=== PATIENT | male | born 1960 | race Caucasian/White ===

== ENCOUNTER 2017-04-05 19:54 | Emergency (ER) | payer OTHER ==
[2017-04-05 22:57] LABS: Hematocrit 42 % (42-52); Hemoglobin 13.9 g/dl (14.0-18.0); Mean Corpuscular HGB Conc 33 g/dl (31-36); Mean Corpuscular Hemoglobin 30 pg (27-31); Mean Corpuscular Volume 90 fL (80-94); Red Blood Count 4.65 10^6/ul (4.0-5.4); Red Cell Distribution Width 14 % (10.5-15); White Blood Count 9.7 10^3/ul (3.5-10.8)
[2017-04-05 23:01] LABS: Add Diff/Slide Review? Slide Review Added; Comments Flag Yes
[2017-04-05 23:08] LABS: Albumin 4.2 g/dL (3.2-5.2); BUN/Creatinine Ratio 11.2 (8-20); Calcium 9.5 mg/dL (8.6-10.3); EGFR African American 91.3 (>60); Potassium 3.7 mmol/L (3.5-5.0); Total Bilirubin 0.9 mg/dL (0.2-1.0); Total Protein 7.2 g/dL (6.4-8.9)
[2017-04-05] MEDS ORDERED: NS 0.9% 1000 ML* 1,000 ML IV ONE (23:30)
[2017-04-05] MEDS ORDERED: Ketorolac INJ* 30 MG/ML 1 ML VIAL IV PUSH ONE (23:30)
[2017-04-05] MEDS ORDERED: Iohexol 300* (CONTRAST) 10 ML SDV IV ONE (23:57)
--- NOTE | 2017-04-06 00:21 | ED ---
Abdominal Pain/Male - HPI Summary HPI Summary: 57M presents with LLQ pain for 5 days. He states the pain radiates across his lower abdomen. The pain is cramp like. He admits to more frequent stools than normal. He states that his stools tend to be looser but no blood or mucus in his stools. no new foods or any one else sick. no nausea or vomiting. no dysuria, hematuria, flank pain, urgency and frequency. took advil for pain. He has never had these symptoms before. He had appendix removed when younger. - History of Current Complaint Chief Complaint: EDAbdPain Stated Complaint: ABD PAIN Time Seen by Provider: 04/05/17 23:21 Pain Intensity: 6 - Allergies/Home Medications Allergies/Adverse Reactions: Allergies Allergy/AdvReac Type Severity Reaction Status Date / Time Morphine Allergy Severe Nausea And Verified 04/05/17 20:14 Vomiting PMH/Surg Hx/FS Hx/Imm Hx Endocrine/Hematology History: Denies: Hx Diabetes, Hx Thyroid Disease Cardiovascular History: Reports: Hx Hypertension Respiratory History: Denies: Hx Asthma, Hx Chronic Obstructive Pulmonary Disease (COPD) GI History: Denies: Hx Ulcer History: Denies: Hx Dialysis, Hx Renal Disease - Surgical History Surgery Procedure, Year, and Place: APPENDECTOMY. HEMRROIDECTOMY. LEFT KNEE ARTHOSCOPY Infectious Disease History: No Infectious Disease History: Denies: Hx Clostridium Difficile, Hx Hepatitis, Hx Human Immunodeficiency Virus (HIV), Hx of Known/Suspected MRSA, Hx Shingles, Hx Tuberculosis, History Other Infectious Disease, Traveled Outside the [place] in Last 30 Days - Family History Known Family History: Positive: Hypertension - Social History Alcohol Use: Daily Alcohol Amount: 6-8 beers Substance Use Type: Reports: None Smoking Status (MU): Never Smoked Tobacco Type: Cigarettes Length of Time of Smoking/Using Tobacco: 10 years Have You Smoked in the Last Year: No Review of Systems Positive: Fever Negative: Chest Pain Negative: Shortness Of Breath Positive: Abdominal Pain, Diarrhea. Negative: Vomiting, Nausea All Other Systems Reviewed And Are Negative: Yes Physical Exam Triage Information Reviewed: Yes Vital Signs On Initial Exam: Initial Vitals Temp Pulse Resp BP Pulse Ox 98.7 F 75 16 149/73 98 04/05/17 20:05 04/05/17 20:05 04/05/17 20:05 04/05/17 20:05 04/05/17 20:05 Vital Signs Reviewed: Yes Appearance: Positive: Well-Appearing Skin: Positive: Warm, Dry Head/Face: Positive: Normal Head/Face Inspection Eyes: Positive: Normal, EOMI, KASIE, Conjunctiva Clear ENT: Positive: Normal ENT inspection, Pharynx normal, TMs normal Respiratory/Lung Sounds: Positive: Clear to Auscultation, Breath Sounds Present Cardiovascular: Positive: Normal, RRR Abdomen Description: Positive: Soft, Other: - tenderness in RLQ and LLQ, no rebound Bowel Sounds: Positive: Present - [place] Coma Scale Coma Scale Total: 15 Diagnostics - Vital Signs Vital Signs Temp Pulse Resp BP Pulse Ox 04/05/17 23:23 68 95 04/05/17 23:22 129/60 04/05/17 21:55 98.1 F 77 16 149/66 97 04/05/17 20:05 98.7 F 75 16 149/73 98 - Laboratory Lab Results: Lab Results 04/05/17 04/05/17 04/05/17 Range/Units 22:45 22:45 22:45 WBC 9.7 (3.5-10.8) 10^3/ul RBC 4.65 (4.0-5.4) 10^6/ul Hgb 13.9 L (14.0-18.0) g/dl Hct 42 (42-52) % MCV 90 (80-94) fL MCH 30 (27-31) pg MCHC 33 (31-36) g/dl RDW 14 (10.5-15) % Plt Count 170 (150-450) 10^3/ul Neut % (Auto) 71.1 (38-83) % Lymph % (Auto) 17.3 L (25-47) % [place] % (Auto) 9.4 H (1-9) % Eos % (Auto) 1.3 (0-6) % Baso % (Auto) 0.9 (0-2) % Absolute Neuts (auto) 6.9 (1.5-7.7) 10^3/ul Absolute Lymphs (auto) 1.7 (1.0-4.8) 10^3/ul Absolute Monos (auto) 0.9 H (0-0.8) 10^3/ul Absolute Eos (auto) 0.1 (0-0.6) 10^3/ul Absolute Basos (auto) 0.1 (0-0.2) 10^3/ul Absolute Nucleated RBC 0.02 10^3/ul Nucleated RBC % 0.2 Sodium 133 (133-145) mmol/L Potassium 3.7 (3.5-5.0) mmol/L Chloride 101 (101-111) mmol/L Carbon Dioxide 28 (22-32) mmol/L Anion Gap 4 (2-11) mmol/L BUN 12 (6-24) mg/dL Creatinine 1.07 (0.67-1.17) mg/dL Est GFR ( Amer) 91.3 (>60) Est GFR (Non-Af Amer) 71.0 (>60) BUN/Creatinine Ratio 11.2 (8-20) Glucose 125 H (70-100) mg/dL Lactic Acid 1.0 (0.5-2.0) mmol/L Calcium 9.5 (8.6-10.3) mg/dL Total Bilirubin 0.90 (0.2-1.0) mg/dL AST 16 (13-39) U/L ALT 20 (7-52) U/L Alkaline Phosphatase 50 (34-104) U/L C-React Prot High Sens 63.92 mg/L Total Protein 7.2 (6.4-8.9) g/dL Albumin 4.2 (3.2-5.2) g/dL Globulin 3.0 (2-4) g/dL Albumin/Globulin Ratio 1.4 (1-3) Lipase 12 (11.0-82.0) U/L Result Diagrams: 04/05/17 22:45 04/05/17 22:45 Lab Statement: Any lab studies that have been ordered have been reviewed, and results considered in the medical decision making process. Re-Evaluation - Re-Evaluation First Eval Re-Evaluation Time: 02:16 Change: Improved Comment: feeling better after toradol Abdominal Pain Fem Course/Dx - Course Course Of Treatment: 57M presents with LLQ pain for 5 days. He states the pain radiates across his lower abdomen. The pain is cramp like. He admits to more frequent stools than normal. He states that his stools tend to be looser but no blood or mucus in his stools. no new foods or any one else sick. no nausea or vomiting. no dysuria, hematuria, flank pain, urgency and frequency. took advil for pain. He has never had these symptoms before. He had appendix removed when younger. on exam has tenderness in LLQ greatest and RLQ. labs normal wbc 9.7 and crp is 63. patient signed out to dr valdez pending CT. - Diagnoses Differential Diagnosis/HQI/PQRI: Bowel Obstruction, Constipation, Diverticulitis Provider Diagnoses: Abdominal pain Discharge - Discharge Plan Condition: Stable Disposition: OTHER Discharge Disposition Comment: signed out to dr valdez pending CT Referrals: Bhargavi Krueger MD [Primary Care Provider] -
--- NOTE | 2017-04-06 03:25 | ED ---
Re-Evaluation - Re-Evaluation First Eval Re-Evaluation Time: 02:16 Change: Improved Comment: feeling better after toradol Course/Dx - Course Course Of Treatment: RX CIPRO/FLAGYL. F/U PMD; RETURN IF WORSE - Diagnoses Provider Diagnoses: Abdominal pain, Diverticulitis
[2017-04-06] MEDS ORDERED: metroNIDAZOLE TAB* 250 MG PO ONE (03:26)
[2017-04-06] MEDS ORDERED: Ciprofloxacin TAB* 500 MG PO ONE (03:26)
[2017-04-06 04:11] VITALS: BP 121/64
--- NOTE | 2017-04-06 08:06 | RAD ---
CLINICAL HISTORY: Left lower quadrant pain. Relevant surgical history includes appendectomy. COMPARISON: Similar examination dated March 17, 2008 TECHNIQUE: Contrast enhanced CT examination of the abdomen and pelvis from the lung bases through the initial tuberosities. The patient received 133 mL Omnipaque 300 intravenously prior to imaging.The patient received oral contrast as well prior to imaging. FINDINGS: VISUALIZED LUNG BASES: There are mild hypoventilatory changes the bilateral lung bases. Otherwise the visualized lung bases are grossly clear. There is no pleural effusion. ABDOMEN AND PELVIS: The liver, spleen, pancreas and adrenal glands are grossly normal in appearance. The gallbladder is normal. The kidneys are normal in appearance without focal mass, calcification or signs of hydronephrosis. The oral contrast has progressed as far as the rectum. The small and large bowel are not distended. Consistent with the patient's surgical history, the appendix is not visualized. At the superiormost portion of the matthew ascending colon (axial image 29 and coronal image 49) there is a short segment of bowel exhibiting mild circumferential wall thickening and infiltration of the mesenteric fat. This is in the presence of at least one diverticula. There is no gross retroperitoneal or mesenteric lymphadenopathy. The pelvic viscera is normal in appearance. There are small fat-containing inguinal hernias bilaterally. The abdominal aorta and iliac arteries are normal in course and diameter. Degenerative changes include multilevel loss of intervertebral disc height involving the lower thoracic and lumbar spine.There are no sinister bone lesions. IMPRESSION: 1. Short segment of bowel wall thickening and pericolonic inflammatory change at the superiormost ascending colon diverticulitis, likely in the presence of at least one diverticulum. A less likely consideration, though not eliminated on CT imaging alone, would be neoplasm. Particularly if the patient has never undergone screening colonoscopy, direct visualization after a resolution of the acute symptoms is advised. 2. Additional chronic, degenerative and postsurgical changes described in the body the report.
== END 2017-04-06 04:12 | disposition home or self-care (01) ==
LOC: ED 19:54
DX: K57.92 Diverticulitis of intestine, part unspecified, without perforation or abscess without bleeding (principal); R10.9 Unspecified abdominal pain
CPT/HCPCS: 36415; 74177; 80053; 83605; 83690; 85025; 86141; 96374; 99283; A9270-GY; J1885; Q9967

== ENCOUNTER 2017-07-31 11:07 | Emergency (ER) | payer OTHER ==
[2017-07-31 12:20] VITALS: BP 124/72
--- NOTE | 2017-07-31 13:13 | UC ---
Respiratory Complaint HPI - HPI Summary HPI Summary: Patient presents with complaints of fever, sweats, and chest congestion, cough. He states his symptoms have been for about 2 weeks and he has been tkaing OTC cold medications with no real significant improvement in his symptoms. He denies chest or abdominal pain, nausea, vomiting, diarrhea. He reports mild shortness of breath with exertion but denies chest pain, arm, neck , shoulder or jaw pain. - History of Current Complaint Chief Complaint: UCRespiratory Stated Complaint: SINUS AND CHEST CONGESTION Time Seen by Provider: 07/31/17 12:28 Hx Obtained From: Patient Onset/Duration: Gradual Onset, Lasting Weeks Timing: Intermittent Episodes Severity Initially: Mild Severity Currently: Moderate Pain Intensity: 6 Aggravating Factors: Deep Breaths Alleviating Factors: Spontaneous Resolution Associated Signs And Symptoms: Positive: URI, Nasal Congestion, Sinus Discomfort - Risk Factors Pulmonary Embolism Risk Factors: Negative Cardiac Risk Factors: Negative Pseudomonas Risk Factors: Negative Tuberculosis Risk Factors: Negative - Allergies/Home Medications Allergies/Adverse Reactions: Allergies Allergy/AdvReac Type Severity Reaction Status Date / Time MS Morphine [Morphine] Allergy Severe Nausea And Verified 07/31/17 12:20 Vomiting PMH/Surg Hx/FS Hx/Imm Hx Previously Healthy: Yes - Surgical History Surgical History: Yes Surgery Procedure, Year, and Place: APPENDECTOMY. HEMRROIDECTOMY. LEFT KNEE ARTHOSCOPY - Family History Known Family History: Positive: Hypertension - Social History Occupation: Employed Full-time Lives: With Family Alcohol Use: Daily Alcohol Amount: 6-8 beers Substance Use Type: None Smoking Status (MU): Former Smoker Type: Cigarettes Length of Time of Smoking/Using Tobacco: 10 years Have You Smoked in the Last Year: No When Did the Patient Quit Smoking/Using Tobacco: 24 years ago Review of Systems Constitutional: Fever, Fatigue Skin: Negative Eyes: Negative ENT: Negative Respiratory: Shortness Of Breath, Cough Cardiovascular: Negative Gastrointestinal: Negative Genitourinary: Negative Motor: Negative Neurovascular: Negative Musculoskeletal: Negative Neurological: Negative Psychological: Negative Is Patient Immunocompromised?: No All Other Systems Reviewed And Are Negative: Yes Physical Exam Triage Information Reviewed: Yes Appearance: Well-Appearing Vital Signs: Initial Vital Signs Temp 97.6 F 07/31/17 12:15 Pulse 79 07/31/17 12:15 Resp 16 07/31/17 12:15 BP 124/72 07/31/17 12:15 Pulse Ox 99 07/31/17 12:15 Vital Signs Reviewed: Yes Eye Exam: Normal ENT Exam: Normal ENT: Positive: Pharynx normal, TMs normal Neck exam: Normal Neck: Positive: 1 Respiratory Exam: Normal Respiratory: Positive: Rhonchi Cardiovascular Exam: Normal Cardiovascular: Positive: RRR, No Murmur, Pulses Normal Abdominal Exam: Normal Musculoskeletal Exam: Normal Neurological Exam: Normal Psychological Exam: Normal Skin Exam: Normal UC Diagnostic Evaluation - Laboratory O2 Sat by Pulse Oximetry: 99 Respiratory Course/Dx - Course Course Of Treatment: Patient presents with bronchitis, and was treated with Augmentin, Prednisone, and albuterol. He had stable VS, nontoxic appearance, and discharged home in stable condition. - Differential Dx/Diagnosis Differential Diagnosis/HQI/PQRI: Bronchitis Provider Diagnoses: bronchitis Discharge - Discharge Plan Condition: Stable Disposition: HOME Prescriptions: Albuterol HFA INHALER* [Ventolin HFA Inhaler*] 1 puff INH Q4H PRN #1 mdi PRN Reason: Cough Amoxicillin/Clavulanate TAB* [Augmentin TAB 500 mg*] 500 mg PO TID #30 tab predniSONE TAB* [Deltasone TAB*] 20 mg PO BID #10 tab Patient Education Materials: Acute Bronchitis (ED) Referrals: Bhargavi Krueger MD [Primary Care Provider] -
== END 2017-07-31 13:13 | disposition home or self-care (01) ==
LOC: UCEAST 11:07
DX: J40 Bronchitis, not specified as acute or chronic (principal); Z88.5 Allergy status to narcotic agent; Z87.891 Personal history of nicotine dependence
CPT/HCPCS: 87502; 99212; G0463

== ENCOUNTER 2017-11-25 18:27 | Emergency (ER) | payer OTHER ==
[2017-11-25 18:41] VITALS: BP 145/91
--- NOTE | 2017-11-25 19:00 | UC ---
Heena Kenny Elizabeth, scribed for Lisandro Kelley MD on 11/25/17 at 1842 . Skin Complaint HPI - HPI Summary HPI Summary: This patient is a 57 year old M presenting to [facility] with a chief complaint of a tick bite on his left inner thigh since 2 days ago. The patient notes that the ticks head remains embedded in his skin but he was able to remove the rest of the ticks body this morning. The patient rates the pain 0/10 in severity. Symptoms aggravated by nothing. Symptoms alleviated by nothing. The patient notes that he took 200mg doxycycline today for prophylaxis. The patient was found to have increased BP in UC. - History of Current Complaint Time Seen by Provider: 11/25/17 18:28 Stated Complaint: TICK Hx Obtained From: Patient Onset/Duration: Sudden Onset, Lasting Days - 2 days, Still Present Timing: Constant Onset Severity: Mild Current Severity: Mild Pain Intensity: 0 Pain Scale Used: 0-10 Numeric Location: Other - left inner thigh Aggravating Factor(s): Nothing Alleviating Factor(s): Nothing Related History: Insect Bite/Sting - tick bite - Allergy/Home Medications Allergies/Adverse Reactions: Allergies Allergy/AdvReac Type Severity Reaction Status Date / Time morphine Allergy Nausea And Verified 11/25/17 18:28 Vomiting Review of Systems Constitutional: Negative - NEGATIVE FEVER Skin: Other - Tick head embedded in left inner thigh ENT: Negative - NEGATIVE EPISTAXIS Gastrointestinal: Negative - NEGATIVE VOMITING All Other Systems Reviewed And Are Negative: Yes PMH/Surg Hx/FS Hx/Imm Hx Previously Healthy: Yes - Surgical History Surgical History: Yes Surgery Procedure, Year, and Place: APPENDECTOMY. HEMRROIDECTOMY. LEFT KNEE ARTHOSCOPY - Family History Known Family History: Positive: Hypertension - Social History Alcohol Use: Daily Alcohol Amount: 6-8 beers Substance Use Type: None Smoking Status (MU): Former Smoker Type: Cigarettes Length of Time of Smoking/Using Tobacco: 10 years Have You Smoked in the Last Year: No When Did the Patient Quit Smoking/Using Tobacco: 24 years ago Physical Exam - Summary Physical Exam Summary: VITAL SIGNS: Reviewed. GENERAL: Patient is a well-developed and nourished MALE who is lying comfortable in the stretcher. Patient is not in any acute respiratory distress. HEAD AND FACE: Normocephalic EYES: PERRLA, EOMI x 2. EARS: Hearing grossly intact. MOUTH: Oropharynx within normal limits. NECK: Supple, trachea is midline, no adenopathy, no JVD, no carotid bruit. CHEST: Symmetric, no tenderness at palpation LUNGS: Clear to auscultation bilaterally. No wheezing or crackles. CVS: Regular rate and rhythm, S1 and S2 present, no murmurs or gallops appreciated. ABDOMEN: Soft, non-tender. Bowel sounds are normal. No abdominal abnormal pulsations. EXTREMITIES: Full ROM in all major joints, no edema, no cyanosis or clubbing. Head of a tick embedded in left inner thigh. NEURO: Alert and oriented x 3. No acute neurological deficits. Speech is normal and follows commands. SKIN: Dry and warm. Head of a tick embedded in left inner thigh. Triage Information Reviewed: Yes Vital Signs: Initial Vital Signs Temp 98.9 F 11/25/17 18:37 Pulse 82 11/25/17 18:37 Resp 18 11/25/17 18:37 BP 145/91 11/25/17 18:37 Pulse Ox 98 11/25/17 18:37 Vital Signs Reviewed: Yes Course/Dx - Course Course Of Treatment: This patient is a 57-year-old male who presents to the urgent care for tick removal. Tick was successfully removed. Patient already took the doxycycline 200 mg as a prophylaxis. I discussed all the findings and test results with the patient and Patient was instructed to return to the or go to the ED if develops any fever, increase sore throat unable to swallow, drooling, unable to open their mouth, or any other symptoms. The patient understands and agrees. Plan of care was discussed with the patient and understands and agrees. All questions were answered at patient satisfaction. There were no further complaints or concerns. Patient is A + O X 3. hemodynamically stable. - Diagnoses Provider Diagnoses: tick bite Discharge - Sign-Out/Discharge Documenting (check all that apply): Discharge/Admit/Transfer - Discharge Plan Condition: Stable Disposition: HOME Patient Education Materials: Tick Bite (ED) Referrals: Bhargavi Krueger MD [Primary Care Provider] - Additional Instructions: Follow up with primary care physician within 1 week for high blood pressure noted today. Return to with any new or worsening symptoms - Billing Disposition and Condition Condition: STABLE Disposition: HOME The documentation as recorded by the scribe, [place],Jessie accurately reflects the service I personally performed and the decisions made by me, Lisandro Kelley MD.
== END 2017-11-25 18:55 | disposition home or self-care (01) ==
LOC: UCEAST 18:27
DX: S70.362A Insect bite (nonvenomous), left thigh, initial encounter (principal); W57.XXXA Bitten or stung by nonvenomous insect and other nonvenomous arthropods, initial encounter; Y93.9 Activity, unspecified; Y92.9 Unspecified place or not applicable; Z88.5 Allergy status to narcotic agent; Z82.49 Family history of ischemic heart disease and other diseases of the circulatory system; Z87.891 Personal history of nicotine dependence
CPT/HCPCS: 99211; G0463

== ENCOUNTER 2018-02-05 14:21 | Emergency (ER) | payer OTHER ==
[2018-02-05 14:59] VITALS: BP 128/78
--- NOTE | 2018-02-05 16:04 | UC ---
Lower Extremity/Ankle HPI - HPI Summary HPI Summary: patient states his shins have been sensitive since he hit them in July. He hit his left sexton again a week ago against the metal stand of a picnic table. Patient states the pain was very intense and has noticed increased redness and swelling on his leg ever since. Denies fever or chills but states he feels his leg 's skin is very tense from the underlying swelling - History of Current Complaint Chief Complaint: UCSkin Stated Complaint: L LEG INJURY Time Seen by Provider: 02/05/18 15:31 Hx Obtained From: Patient Onset/Duration: Sudden Onset, Lasting Days Severity Initially: Moderate Severity Currently: Severe Pain Intensity: 7 Aggravating Factor(s): Standing, Ambulation Able to Bear Weight: Yes - Risk Factors Gout Risk Factors: Age Over 40, Male, Hypertension DVT Risk Factors: Negative Septic Arthritis Risk Factor: Negative - Allergies/Home Medications Allergies/Adverse Reactions: Allergies Allergy/AdvReac Type Severity Reaction Status Date / Time morphine Allergy Nausea And Verified 02/05/18 14:59 Vomiting Home Medications: Home Medications Esomeprazole Magnesium [Nexium 24Hr] 20 mg PO DAILY WITH MEAL 02/05/18 [History Confirmed 02/05/18] PMH/Surg Hx/FS Hx/Imm Hx Previously Healthy: Yes Cardiovascular History: Hypertension GI/ History: Gastroesophageal Reflux - Surgical History Surgical History: Yes Surgery Procedure, Year, and Place: APPENDECTOMY. HEMRROIDECTOMY. LEFT KNEE ARTHOSCOPY - Family History Known Family History: Positive: Hypertension - Social History Alcohol Use: Daily Alcohol Amount: 6-8 beers Substance Use Type: None Smoking Status (MU): Former Smoker Type: Cigarettes Length of Time of Smoking/Using Tobacco: 10 years Have You Smoked in the Last Year: No When Did the Patient Quit Smoking/Using Tobacco: 24 years ago Review of Systems Constitutional: Negative Skin: Rash, Bruising Musculoskeletal: Edema All Other Systems Reviewed And Are Negative: Yes Physical Exam Triage Information Reviewed: Yes Appearance: Well-Appearing, No Pain Distress, Obese Vital Signs: Initial Vital Signs Temp 98.1 F 02/05/18 14:54 Pulse 81 02/05/18 14:54 Resp 20 02/05/18 14:54 BP 128/78 02/05/18 14:54 Pulse Ox 98 02/05/18 14:54 Vital Signs Reviewed: Yes Eyes: Positive: Conjunctiva Clear ENT: Positive: Hearing grossly normal, Pharynx normal Neck: Positive: Supple, Nontender, No Lymphadenopathy Cardiovascular: Positive: RRR, No Murmur, Pulses Normal, Brisk Capillary Refill Musculoskeletal: Positive: Strength Intact, Edema @ - lower extremities b/l 1+ pitting edema with granulation tissue on left sexton and surrounding thinning of the skin and circumferential erythema distal third of left leg. Pulses present, capillary refill brisk Neurological: Positive: Alert, Muscle Tone Normal Lower Extremity Course/Dx - Course Course Of Treatment: cellulitis on left leg to start antibiotics as prescribed, control edema by elevation of legs and compression with DALTON bandage, which was applied on right leg. Take ibuprofen as needed - Differential Dx/Diagnosis Provider Diagnoses: Left Leg cellulitis Discharge - Sign-Out/Discharge Documenting (check all that apply): Patient Departure - Discharge Plan Condition: Good Disposition: HOME Prescriptions: Amoxicillin/Clavulanate TAB* [Augmentin TAB 875*] 875 mg PO BID 7 Days #14 tab Patient Education Materials: Cellulitis (ED), Amoxicillin/Clavulanate Potassium (By mouth) Referrals: Bhargavi Krueger MD [Primary Care Provider] - - Billing Disposition and Condition Condition: GOOD Disposition: Home
== END 2018-02-05 15:55 | disposition home or self-care (01) ==
LOC: UCEAST 14:21
DX: L03.116 Cellulitis of left lower limb (principal); K21.9 Gastro-esophageal reflux disease without esophagitis; Z88.5 Allergy status to narcotic agent; Z82.49 Family history of ischemic heart disease and other diseases of the circulatory system; Z87.891 Personal history of nicotine dependence
CPT/HCPCS: 99212; G0463

== ENCOUNTER 2018-02-09 07:38 | Emergency (ER) | payer OTHER ==
--- NOTE | 2018-02-09 07:49 | ED ---
Lower Extremity - HPI Summary HPI Summary: 58 y/o male presents to [facility] c/o worsening swelling, redness and pain at the L sexton starting 10 days ago s/p injury. Pain aggravated to touch. Pt fell in July 2017 and "smashed both shins". Pt then reinjured his L sexton 10 days ago , onset of these current symptoms. Pt slipped and hit his L sexton on a metal pipe. Pain initially rated 8-9/10. Pt seen at Urgent Care four days ago, given Augmentin for cellulitis. Denies fevers. FHx mother had blood clots. - History of Current Complaint Stated Complaint: SKIN COMPLAINT Hx Obtained From: Patient Mechanism Of Injury: Direct Blow Onset/Duration: Days Timing: Constant Location: Is Discrete @ - L sexton Associated Signs And Symptoms: Positive: Swelling, Redness Aggravating Factor(s): Other - touch Alleviating Factor(s): Nothing - Allergies/Home Medications Allergies/Adverse Reactions: Allergies Allergy/AdvReac Type Severity Reaction Status Date / Time morphine Allergy Nausea And Verified 02/09/18 07:44 Vomiting PMH/Surg Hx/FS Hx/Imm Hx Previously Healthy: No Endocrine/Hematology History: Denies: Hx Diabetes, Hx Thyroid Disease Cardiovascular History: Reports: Hx Hypertension Respiratory History: Denies: Hx Asthma, Hx Chronic Obstructive Pulmonary Disease (COPD) GI History: Denies: Hx Ulcer History: Denies: Hx Dialysis, Hx Renal Disease - Surgical History Surgery Procedure, Year, and Place: APPENDECTOMY. HEMRROIDECTOMY. LEFT KNEE ARTHOSCOPY Infectious Disease History: Denies: Hx Clostridium Difficile, Hx Hepatitis, Hx Human Immunodeficiency Virus (HIV), Hx of Known/Suspected MRSA, Hx Shingles, Hx Tuberculosis, History Other Infectious Disease, Traveled Outside the [place] in Last 30 Days - Family History Known Family History: Positive: Hypertension, Diabetes - aunt, Blood Disorder - mother - blood clots Negative: Cardiac Disease - Social History Alcohol Use: Daily Alcohol Amount: 6-8 beers Hx Substance Use: No Substance Use Type: Reports: None Hx Tobacco Use: Yes Smoking Status (MU): Former Smoker Type: Cigarettes Length of Time of Smoking/Using Tobacco: 10 years Have You Smoked in the Last Year: No Review of Systems Constitutional: Negative Eyes: Negative ENT: Negative Cardiovascular: Negative Respiratory: Negative Gastrointestinal: Negative Genitourinary: Negative Musculoskeletal: Negative Positive: Other - swelling, redness, pain at LLE Neurological: Negative Psychological: Normal All Other Systems Reviewed And Are Negative: Yes Physical Exam Triage Information Reviewed: Yes Vital Signs Reviewed: Yes Appearance: Positive: Well-Appearing, No Pain Distress Skin: Positive: Warm, Skin Color Reflects Adequate Perfusion, Dry Head/Face: Positive: Normal Head/Face Inspection Eyes: Positive: EOMI, KASIE ENT: Positive: Normal ENT inspection Neck: Positive: Supple, Nontender Respiratory/Lung Sounds: Positive: Clear to Auscultation, Breath Sounds Present Cardiovascular: Positive: RRR Abdomen Description: Positive: Nontender, Soft Bowel Sounds: Positive: Present Musculoskeletal: Positive: Strength/ROM Intact, Other - LLE - There is a 15x10 cm area of erythema at the lateral aspect of the L sexton. There is swelling in the lateral aspect of the sexton that is firm to touch. There is no popliteal or upper calf tenderness to palpation. Neurological: Positive: Sensory/Motor Intact, Alert, Oriented to Person Place, Time Psychiatric: Positive: Affect/Mood Appropriate Discharge - Discharge Plan Referrals: Bhargavi Krueger MD [Primary Care Provider] -
[2018-02-09 07:57] VITALS: BP 135/66
--- NOTE | 2018-02-09 08:31 | RAD ---
Indication: Leg swelling status post leg injury. 2 views of left lower leg demonstrates no fracture. No other bone or joint abnormality is noted. IMPRESSION: No fracture of the left lower leg is noted.
--- NOTE | 2018-02-09 08:32 | UC ---
Lower Extremity/Ankle HPI - HPI Summary HPI Summary: 58 y/o male presents to [facility] c/o worsening swelling, redness and pain at the L sexton starting 10 days ago s/p injury. Pain aggravated to touch. Pt fell in July 2017 and "smashed both shins". Pt then reinjured his L sexton 10 days ago , onset of these current symptoms. Pt slipped and hit his L sexton on a metal pipe. Pain initially rated 8-9/10. Pt seen at Urgent Care four days ago, given Augmentin for cellulitis. Denies fevers. FHx mother had blood clots. This is scribe Ed Monica documenting for attending Dr. Jase Blanca. I, Dr. Bullard, personally performed the services described in this documentation as scribed in my presence and it is both accurate and complete. - History of Current Complaint Chief Complaint: UCSkin Stated Complaint: SKIN COMPLAINT Time Seen by Provider: 02/09/18 07:52 Hx Obtained From: Patient Onset/Duration: Lasting Days Pain Intensity: 3 Pain Scale Used: 0-10 Numeric Aggravating Factor(s): Other - touch Alleviating Factor(s): Nothing - Allergies/Home Medications Allergies/Adverse Reactions: Allergies Allergy/AdvReac Type Severity Reaction Status Date / Time morphine Allergy Nausea And Verified 02/09/18 07:44 Vomiting Home Medications: Home Medications Ibuprofen [Goodsense Ibuprofen] 600 mg PO Q8HR PRN 02/09/18 [History Confirmed 02/09/18] PMH/Surg Hx/FS Hx/Imm Hx Previously Healthy: No Endocrine History: Other Other Endocrine History: Negative: DM, Thyroid disease Respiratory History: Other Other Respiratory History: Negative: COPD and asthma - Surgical History Surgical History: Yes Surgery Procedure, Year, and Place: APPENDECTOMY. HEMRROIDECTOMY. LEFT KNEE ARTHOSCOPY - Family History Known Family History: Positive: Hypertension, Diabetes - aunt, Blood Disorder - mother - blood clots Negative: Cardiac Disease - Social History Alcohol Use: Daily Alcohol Amount: 6-8 beers Substance Use Type: None Smoking Status (MU): Former Smoker Type: Cigarettes Length of Time of Smoking/Using Tobacco: 10 years Have You Smoked in the Last Year: No When Did the Patient Quit Smoking/Using Tobacco: 24 years ago Review of Systems Constitutional: Negative Skin: Other - redness, swelling, pain @ LLE Eyes: Negative ENT: Negative Respiratory: Negative Cardiovascular: Negative Gastrointestinal: Negative Genitourinary: Negative Motor: Negative Neurovascular: Negative Musculoskeletal: Negative Neurological: Negative Psychological: Negative All Other Systems Reviewed And Are Negative: Yes Physical Exam Triage Information Reviewed: Yes Appearance: No Pain Distress, Ill-Appearing - mildly Vital Signs: Initial Vital Signs Temp 99.0 F 02/09/18 07:44 Pulse 66 02/09/18 07:44 Resp 18 02/09/18 07:44 BP 135/66 02/09/18 07:44 Pulse Ox 97 02/09/18 07:44 Vital Signs Reviewed: Yes ENT: Positive: Normal ENT inspection Neck: Positive: Supple, Nontender Respiratory: Positive: Lungs clear, Normal breath sounds Cardiovascular: Positive: RRR Abdomen Description: Positive: Nontender, Soft Bowel Sounds: Positive: Present Musculoskeletal: Positive: Strength Intact, ROM Intact Neurological: Positive: Alert Psychological: Positive: Age Appropriate Behavior Skin: Positive: Other - LLE - There is a 15x10 cm area of erythema at the lateral aspect of the L sexton. There is swelling in the lateral aspect of the sexton that is firm to touch. There is no popliteal or upper calf tenderness to palpation. Diagnostics - Radiology LLE XR Xray Interpretation: No Acute Changes - No fracture of left lower leg noted Radiology Interpretation Completed By: Radiologist Clever Doppler Radiology Interpretation Completed By: Radiologist - 1. NO EVIDENCE FOR DEEP VENOUS THROMBOSIS. 2. COMPLEX FLUID COLLECTION IN THE LATERAL LOWER LEG ABOVE THE ANKLE IN THE REGION OF INJURY. Lower Extremity Course/Dx - Course Course Of Treatment: THE FLUID COLLECTION APPEARED IMMEDIATELY AFTER THE INJURY ; IT IS MOST PROBABLY A HEMATOMA. IT DOES NOT APPEAR TO BE AN ABSCESS CLINICALLY AT THIS TIME. DISCUSSED U/S AND X-RAY RESULTS WITH THE PATIENT; F/U PMD, RECHECK SOONER IF WORSE. - Differential Dx/Diagnosis Provider Diagnoses: LLE CONTUSION AND CELLULITIS Discharge - Sign-Out/Discharge Documenting (check all that apply): Patient Departure - Discharge Plan Condition: Stable Disposition: HOME Prescriptions: Sulfamethox/Trimethoprim DS* [Bactrim DS 800/160 TAB*] 1 tab PO BID #14 tab Patient Education Materials: Cellulitis (ED), Contusion in Adults (ED) Referrals: Bhargavi Krueger MD [Primary Care Provider] - Additional Instructions: FOLLOW UP WITH YOUR DOCTOR WITHIN ONE WEEK. GET RECHECKED FOR ANY WORSENING OF YOUR CONDITION OR QUESTIONS OR CONCERNS. - Billing Disposition and Condition Condition: STABLE Disposition: Home
--- NOTE | 2018-02-09 09:08 | RAD ---
INDICATION: Pain and swelling left lower extremity. COMPARISON: There are no prior studies available for comparison. TECHNIQUE: Multiple real-time, color flow and Doppler tracings of the left lower extremity were obtained. FINDINGS: The common femoral, femoral, profunda femoral and popliteal veins all demonstrate normal compressibility, augmentation with compression and phasic response with respiration. The posterior tibial and peroneal veins demonstrate normal compressibility and augmentation with compression. There is a complex fluid collection located laterally within the lower leg above the ankle measuring 4.5 x 1.0 x 3.5 cm in the region of injury. IMPRESSION: 1. NO EVIDENCE FOR DEEP VENOUS THROMBOSIS. 2. COMPLEX FLUID COLLECTION IN THE LATERAL LOWER LEG ABOVE THE ANKLE IN THE REGION OF INJURY.
== END 2018-02-09 09:30 | disposition home or self-care (01) ==
LOC: UCEAST 07:38
DX: S80.12XA Contusion of left lower leg, initial encounter (principal); W22.8XXA Striking against or struck by other objects, initial encounter; Y93.9 Activity, unspecified; Y92.9 Unspecified place or not applicable; L03.116 Cellulitis of left lower limb; Z88.5 Allergy status to narcotic agent; Z82.49 Family history of ischemic heart disease and other diseases of the circulatory system; Z83.3 Family history of diabetes mellitus; Z83.2 Family history of diseases of the blood and blood-forming organs and certain disorders involving the immune mechanism; Z87.891 Personal history of nicotine dependence
CPT/HCPCS: 99212; G0463

== ENCOUNTER 2019-08-16 16:21 | Emergency (ER) | payer MEDICARE ==
--- OUTSIDE RECORDS SUMMARY | 2019-08-16 16:24 | XMS REPORT | Continuity of Care Document ---
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 Problems Active Problems Provider Date Generalized abdominal pain Donte Gloria MD Onset: 08/01/2019 Diverticular disease of colon Donte Gloria MD Onset: 11/01/2018 Gastroesophageal reflux disease Donte Gloria MD Onset: 11/01/2018 Social History Type Date Description Comments Sex Unknown Tobacco Use Start: Unknown End: Unknown Patient is a former smoker Smoking Status Reviewed: 08/01/19 Patient is a former smoker Allergies, Adverse Reactions, Alerts Active Allergies Reaction Severity Comments Date Morphine 11/01/2018 Celebrex 11/08/2018 Medications Active Medications SIG Qnty Indications Ordering Provider Date Hyoscyamine Sulfate ER 1 by mouth 30tabs R10.84 Donte Gloria, 2019 every day 0.375mg Tablets ER 12HR Miralax 1 scoop daily 1units Donte Gloria, 07/11/2019 3350NF Powder Lisinopril Bhargavi Jackson MD 10mg Tablets Nexium Unknown Vitamin B-Complex Unknown Immunizations Description No Information Available Vital Signs Date Vital Result Comment 08/01/2019 1:04pm Height 68 inches 5'8" Weight 206.00 lb BP Systolic 138 mmHg BP Diastolic 74 mmHg Heart Rate 79 /min BMI (Body Mass Index) 31.3 kg/m2 11/01/2018 8:37am Height 68 inches 5'8" Weight 228.00 lb BP Systolic 148 mmHg BP Diastolic 83 mmHg Heart Rate 55 /min BMI (Body Mass Index) 34.7 kg/m2 Results Description No Information Available Procedures Description No Information Available Medical Devices Description No Information Available Encounters Description No Information Available Assessments Date Code Description Provider 08/01/2019 R10.84 Generalized abdominal pain Donte Gloria MD Plan of Treatment 08/01/2019 - Donte Gloria, MDR10.84 Generalized abdominal painNew Medication :Hyoscyamine Sulfate ER 0.375 mg - 1 by mouth every dayNew Xrays:CT, Abd & Pelvis W/ Contrast, Ordered: 08/01/19Comments:I had a long discussion with the patient regarding all of his symptoms. He does have a normal EGD and colonoscopy just in November 2018. I really do not have a good explanation as to why he is having this pain and discomfort. I doubt that is related to his prostate. At this point I would like to get aCT abdomen and pelvis for further evaluation. Additionally we discussed a trial of Levbid to see ifthis could be irritable bowel syndrome. We will arrange both. He will go get blood work today. Functional Status Description No Information Available Mental Status Description No Information Available Referrals Description No Information Available
--- OUTSIDE RECORDS SUMMARY | 2019-08-16 16:24 | XMS REPORT | Continuity of Care Document ---
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 Onset: 08/26/2015 Open-angle glaucoma - borderline Zachary Wan O.D. Onset: 08/26/2015 Social History Type Date Description Comments Sex Unknown ETOH Use Occasionally consumes alcohol Tobacco Use Start: Unknown End: Unknown Patient is a former smoker Smoking Status Reviewed: 07/09/19 Patient is a former smoker Allergies, Adverse Reactions, Alerts Active Allergies Reaction Severity Comments Date Morphine 08/26/2015 Medications Active Medications SIG Qnty Indications Ordering Provider Date Lisinopril 40mg Unknown Tablets Nexium 40mg Unknown Capsules DR Immunizations Description No Information Available Vital Signs Date Vital Result Comment 07/09/2019 12:08pm Intraocular Pressure Right Eye 17 mmHg Intraocular Pressure Left Eye 17 mmHg 07/12/2018 9:14am Intraocular Pressure Right Eye 20 mmHg Intraocular Pressure Left Eye 19 mmHg Cornea Thickness Left Eye 511 m Cornea Thickness Right Eye 513 m Pachymetry adjusted IOP Right Eye +2 Pachymetry adjusted IOP Left Eye +2 Results Description No Information Available Procedures Date Code Description Status 07/09/2019 14722 Fundus Photography W/Interpretation & Report Completed 07/09/2019 46749 Eye Exam Est Comprehensive Completed Medical Devices Description No Information Available Encounters Description No Information Available Assessments Date Code Description Provider 07/09/2019 H40.013 Open angle with borderline findings, low risk, Zachary Galindo, OD bilateral 07/09/2019 H25.13 Age-related nuclear cataract, bilateral Zachary Woodsonon, OD 07/09/2019 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
[2019-08-16] MEDS ORDERED: Ibuprofen TAB* 600 MG PO ONE (16:33)
[2019-08-16 16:37] VITALS: BP 119/70
--- NOTE | 2019-08-16 18:37 | UC ---
Shoulder Pain HPI - HPI Summary HPI Summary: 59yo male presenting with right shoulder pain after falling on ice 20 minutes before arrival in clinic. States it "hurts to move the shoulder" but denies decreased ROM. States forearm hurt initially as well but cannot pinpoint pain currently. Notes dull pain at rest. Denies numbness and tingling. Describes pain as anterior shoulder pain. Notes "it feels really stiff by the shoulder blade and into right side of neck." Denies taking anything for pain. - History of Current Complaint Chief Complaint: UCUpperExtremity Stated Complaint: SHOULDER INJURY Hx Obtained From: Patient Pain Intensity: 9 - Allergies/Home Medications Allergies/Adverse Reactions: Allergies Allergy/AdvReac Type Severity Reaction Status Date / Time morphine Allergy Nausea And Verified 08/16/19 16:32 Vomiting Home Medications: Home Medications Lisinopril TAB* [Prinivil TAB 10 MG*] 10 mg PO DAILY 06/25/13 [History Confirmed 08/16/19] Esomeprazole Magnesium [Nexium 24Hr] 20 mg PO DAILY WITH MEAL 02/05/18 [History Confirmed 08/16/19] Cyclobenzaprine TAB* [Flexeril 10 MG TAB*] 10 mg PO BEDTIME PRN #5 tab 08/16/19 [Rx] PMH/Surg Hx/FS Hx/Imm Hx Cardiovascular History: Hypertension GI/ History: Gastroesophageal Reflux - Surgical History Surgical History: Yes Surgery Procedure, Year, and Place: APPENDECTOMY. HEMRROIDECTOMY. LEFT KNEE ARTHOSCOPY, benign lump right neck - Family History Known Family History: Positive: Hypertension, Diabetes - aunt, Blood Disorder - mother - blood clots Negative: Cardiac Disease - Social History Alcohol Use: None Alcohol Amount: 6-8 beers Substance Use Type: None Smoking Status (MU): Former Smoker Type: Cigarettes Length of Time of Smoking/Using Tobacco: 10 years Have You Smoked in the Last Year: No When Did the Patient Quit Smoking/Using Tobacco: 24 years ago Review of Systems All Other Systems Reviewed And Are Negative: Yes Constitutional: Positive: Negative Skin: Negative: Bruising Respiratory: Positive: Negative Cardiovascular: Positive: Negative Gastrointestinal: Positive: Negative Neurovascular: Positive: Negative Musculoskeletal: Positive: Arthralgia - right anterior shoulder pain. Negative : Decreased ROM, Edema Neurological/Mental Status: Positive: Negative. Negative: Paresthesia, Numbness Physical Exam Triage Information Reviewed: Yes Appearance: Well-Appearing, No Pain Distress, Well-Nourished Vital Signs: Initial Vital Signs Temp 98.7 F 08/16/19 16:27 Pulse 80 08/16/19 16:27 Resp 18 08/16/19 16:27 BP 119/70 08/16/19 16:27 Pulse Ox 97 08/16/19 16:27 Vital Signs Reviewed: Yes Eyes: Positive: Conjunctiva Clear ENT: Positive: Hearing grossly normal Neck: Positive: Supple Respiratory: Positive: No respiratory distress Cardiovascular: Positive: Pulses Normal, Brisk Capillary Refill Musculoskeletal: Positive: Strength Intact, ROM Intact, No Edema, Other: - TTP of right AC joint and trapezious muscle Neurological Exam: Other - sensationg grossly intact Neurological: Positive: Alert Psychological: Positive: Age Appropriate Behavior Skin Exam: Normal - no erythema or ecchymosis Diagnostics - Radiology shoulder Radiology Interpretation Completed By: Radiologist Summary of Radiographic Findings: IMPRESSION: 1. NO FRACTURE IDENTIFIED IF PAIN PERSISTS FOLLOW-UP IMAGING IS RECOMMENDED. 2. MILD GLENOHUMERAL AND ACROMIOCLAVICULAR OSTEOARTHROPATHY forearm Radiology Interpretation Completed By: Radiologist Summary of Radiographic Findings: FINDINGS: The soft tissues are unremarkable. The bone mineralization is within normal limits. No fracture is identified. Anatomic alignment is maintained. The joint spaces are preserved. IMPRESSION: NO FRACTURE IDENTIFIED Shoulder Course/Dx - Course Course Of Treatment: Discussed negative radiographs with patient and instructed to rest, ice, and stretch. I provided patient with sling and prescription for flexeril for muscle spasms. INstructed to follow up with ortho. Patient voiced understanding and agreed with treatment plan. - Differential Dx/Diagnosis Differential Diagnosis/HQI/PQRI: AC Separation, Contusion, Fracture (Closed), Rotator Cuff Injury, Sprain, Strain Provider Diagnosis: Right anterior shoulder pain Discharge ED - Sign-Out/Discharge Documenting (check all that apply): Patient Departure All imaging exams completed and their final reports reviewed: Yes - Discharge Plan Condition: Stable Disposition: HOME Prescriptions: Cyclobenzaprine TAB* [Flexeril 10 MG TAB*] 10 mg PO BEDTIME PRN #5 tab PRN Reason: Spasms - Muscle Patient Education Materials: Shoulder Separation Exercises (GEN), Shoulder Pain (ED) Referrals: Eileen Sanabria MD [Medical Doctor] - If Needed Additional Instructions: As discussed, the xrays of the shoulder and forearm did not show any fractures. You may take flexeril as directed. This medication may make you drowsy so do not drive or operate heavy machinery while taking it. Rest, ice, and use the sling to help relieve pain. You may also use over the counter pain medications as directed for pain relief. Follow up with orthopedics listed below if pain does not improve within 7 days. - Billing Disposition and Condition Condition: STABLE Disposition: Home
== END 2019-08-16 19:09 | disposition home or self-care (01) ==
LOC: UCEAST 16:21
DX: M25.511 Pain in right shoulder (principal); W00.0XXA Fall on same level due to ice and snow, initial encounter; Y92.9 Unspecified place or not applicable; M19.011 Primary osteoarthritis, right shoulder; I10 Essential (primary) hypertension; K21.9 Gastro-esophageal reflux disease without esophagitis; Z79.899 Other long term (current) drug therapy; Z88.5 Allergy status to narcotic agent; Z87.891 Personal history of nicotine dependence
CPT/HCPCS: 99213; A9270-GY; G0463

== ENCOUNTER 2019-09-12 09:25 | Day surgery (SDC) | payer MEDICARE ==
[~2019-09-12 09:25] MED LIST: Acetaminophen TAB* 325 MG ONE; Acetaminophen TAB* 325 MG PO ONE; Buffered Lidocaine 1% SYRIN* 1 ML/SYRINGE INTRADERM ONE; Lactated Ringers 1000 ML Bag* 1,000 ML IV SCH; ceFAZolin 2 GM PREMIX in ORs 2 GM/50 ML BAG ONE; celeCOXIB CAP* 200 MG ONE; celeCOXIB CAP* 200 MG PO ONE
[2019-09-12] MEDS ORDERED: Midazolam* 1 MG/ML 2 ML VIAL (2 MG) ONE (10:29)
[2019-09-12] MEDS ORDERED: fentaNYL* 50 MCG/ML 2 ML VIAL (100 MCG VIAL) ONE ×2 (10:29→13:52)
[2019-09-12] MEDS ORDERED: Famotidine IV* 10 MG/ML 2 ML (20 mg) IV ONE (11:18)
[2019-09-12] MEDS ORDERED: Naloxone* 0.4 MG/ML 1 ML VIAL IV PRN (11:18)
[2019-09-12] MEDS ORDERED: Famotidine IV* 10 MG/ML 2 ML (20 mg) ONE (11:22)
[2019-09-12] MEDS ORDERED: EPINEPHRINE 1 MG/ML 1 ML VIAL ONE (11:25)
[2019-09-12] MEDS ORDERED: Bupivacaine 0.5%* 50 ML MDV VIAL ONE (11:26)
[2019-09-12] MEDS ORDERED: Rocuronium* 10 MG/ML VIAL ONE (11:53)
[2019-09-12] MEDS ORDERED: Propofol* 10 MG/ML 20 ML BTL ONE (12:49)
[2019-09-12] MEDS ORDERED: Dexamethasone IV* 4 MG/ML 1 ML (4 MG) ONE (12:49)
[2019-09-12] MEDS ORDERED: Bupivacaine 0.5% SDV PF* 30ML VIAL ONE (12:49)
[2019-09-12] MEDS ORDERED: Ondansetron INJ* 2 MG/ML VIAL ONE (12:49)
[2019-09-12] MEDS ORDERED: Lidocaine 2% PF * 5 ML VIAL ONE (12:49)
[2019-09-12] MEDS ORDERED: Sugammadex * 200 MG/2 ML VIAL IV PUSH ONE (13:42)
[2019-09-12] MEDS ORDERED: HYDROmorphone INJ1* 1 MG/ML SYRINGE ONE (15:01)
[2019-09-12] MEDS: HYDROmorphone INJ1* 1 MG/ML SYRINGE IV PRN ×2 (15:02→15:45)
[2019-09-12] MEDS ORDERED: Ketorolac INJ* 30 MG/ML 1 ML VIAL ONE (17:06)
[2019-09-12] MEDS ORDERED: Ketorolac INJ* 30 MG/ML 1 ML VIAL IV ONE (17:25)
[2019-09-12 17:57] VITALS: BP 140/76
--- NOTE | 2019-09-12 23:27 | OP ---
DATE OF OPERATION: 09/12/19 - [facility] DATE OF : 58 SURGEON: Nik Mercado MD. STUDENT SERVICES REPRESENTATIVE: IZA Rocha. A physician family services assistant was required for the length of the procedure, for assistance with patient position, retraction, instrumentation, and closure. ANESTHESIOLOGIST: Dr. Lobo Greene. ANESTHESIA: General anesthesia, regional interscalene block anesthesia. PRE-OP DIAGNOSES: 1. Right shoulder rotator cuff tendon repair, supraspinatus, full thickness with retraction. 2. Right shoulder subacromial impingement and bursitis. 3. Right shoulder AC joint osteoarthritis. 4. Likely right shoulder superior labrum tear, possible biceps tendinosis. POST-OP DIAGNOSES: 1. Right shoulder rotator cuff tendon tear, supraspinatus, full thickness, L- shaped tear. 2. Right shoulder subacromial impingement and bursitis. 3. Right shoulder AC joint osteoarthritis. 4. Right shoulder superior labrum tear, posterior labrum tear. OPERATIVE PROCEDURE: 1. Right shoulder arthroscopic rotator cuff tendon repair, supraspinatus, double row. 2. Right shoulder arthroscopic subacromial decompression. 3. Right shoulder arthroscopic distal clavicle resection. 4. Right shoulder extensive debridement including debridement of the superior labrum, posterior labrum, release of biceps tendon, debridement of subacromial bursitis. 5. Right shoulder open proximal biceps tenodesis, subpectoral. ANTIBIOTICS: Ancef 2 g IV. IV FLUIDS: See Anesthesia note. [id number] TIME: 115 minutes. SPECIMEN: None. IMPLANTS: Arthrex corkscrew 5.5 mm suture anchor, double loaded with SutureTape x2. Arthrex SwiveLock 4.75 mm suture anchor x1. Arthrex proximal biceps tenodesis button x1. COMPLICATIONS: None. ESTIMATED BLOOD LOSS: Minimal. INDICATIONS FOR PROCEDURE: The patient is a 59-year-old man, who fell on . Pain and weakness in the right shoulder. MRI made the above-mentioned diagnoses. The patient opted for surgery. I explained the risks and potential complications of the surgery. I spoke about possible options for superior labrum and biceps treatment as needed, biceps release or tenodesis. The patient preferred tenodesis, but gave me the option of deciding intraoperatively. DESCRIPTION OF PROCEDURE: In preoperative holding, the patient signed a written consent. Operative extremity was marked in preoperative holding. The patient underwent a regional interscalene nerve block in preoperative holding. The patient was taken back to the operating room, placed supine on the operating room table. Sedated and intubated. Placed in the lateral decubitus position right shoulder up. 15 pounds longitudinal traction with appropriate amount for flexion and abduction. Axillary roll. Bony prominences padded. Beanbag hardened. Right shoulder was prepped and draped. Formal surgical time-out was performed. I injected 30 cc of normal saline into the glenohumeral joint from posterior. I established posterior glenohumeral joint portal. Commenced diagnostic arthroscopy. Articular cartilage did not show any severe injury to it. There was obvious superior and posterior labrum tearing, fraying. I established anterior glenohumeral joint portal under direct visualization. I debrided some rotator cuff interval tissue. Probed the labrum. Clear superior labral tear, posterosuperior and posterior labrum tear. I debrided the labrum with an arthroscopic shaver, superior and posterior. Because of the superior labral tear, I decided to cut the biceps. I brought the scissors in from anterior and cut the biceps near its origin. It retracted. I dilated rotator cuff. No subscapularis tendon tear. Undersurface of supraspinatus clearly had some degree of pathology, although supraspinatus tear not immediately visible. I probed it and I found there is some type of scar tissue visible. I placed a spinal needle through this tissue from outside of the shoulder to sully it. I removed fluid and instruments from the glenohumeral joint and moved them to the subacromial space. I worked through anterior and posterior portals, and made lateral and posterolateral portals under direct visualization. I encountered much subacromial bursitic tissue. I debrided this with an arthroscopic shaver. I noted that the spinal needle was placed through a clear high-grade tear in the supraspinatus. I probed this and there was a clear full-thickness tear. It was L-shaped. The longitudinal component was in the rotator cuff interval. Perhaps, two- thirds, at least, if not 80% or more of the supraspinatus was involved. There was a transverse tear component, the other part of the L, with pulling the tendon full-thickness off of bone. I was able to nicely show how the tendon should sit on bone with an arthroscopic cuff grasper. I performed rotator cuff repair. I prepared humeral head footprint by debriding it with a cautery device and then an arthroscopic daphne. Through superolateral poke holes, I placed the medial row anchors, corkscrew suture anchors. I then used antegrade Scorpion suture passer to pass horizontal mattress stitches with the SutureTape from those anchors. I passed all sutures before tying my knots. Tying these knots brought down cuff to bone excellently. Excellent anatomic repair. To increase the surface area of repaired tissue, I placed a lateral row anchor with sutures from the medial row, SwiveLock anchor. I used 1 free suture from that lateral row anchor to pass a simple stitch most posteriorly to flatten out the tiniest of dog ears. Excellent stability of repair by probing and movement of the humerus. Next, I moved to the acromion. I had skeletonized the undersurface of the acromion with a cautery device. I next flattened out the curve on the anterior aspect of the acromion with an arthroscopic bur. I next moved to the AC joint. Debrided synovitic tissue with the cautery device and then removed 8 mm at the distal end of the clavicle with an arthroscopic daphne. I removed all instruments and fluid from subacromial space. I closed skin incisions with [id number]-grars and 12 stitches using nylon 3-0 suture. I took the right shoulder out of longitudinal traction. I made a longitudinal incision over the anteromedial upper arm. I dissected down to the bicipital groove. I placed retractors. Retrieved the long head biceps tendon. I debrided the soft tissue from the bicipital groove. Placed Beath pin. Placed 3 stitches using FiberLoop suture in the long head biceps tendon. I placed my button through bone and flipped it. I tied a knot. I used a free needle to pass another stitch and tied a knot. I removed excess suture in biceps. Irrigation. Closure of subcutaneous tissue with buried simple stitches using Vicryl 3-0 suture. Closure of subcuticular layer with Monocryl 3-0 suture, running stitch. 4x4s, Tegaderm. At the arthroscopic incision sites, had placed Xeroform, 4x4s, ABDs, and foam tape. Sling and abduction pillow. The patient was awakened, extubated, and transferred to the PACU. The patient will receive wound care instructions. Percocet as needed for pain control, Keflex short course for infection prophylaxis given the axillary incision. The patient will follow up in 10 to 14 days in the clinic. No physical therapy for 6 weeks. Sling at all times. [id number]/CPS #: [id number] MTDD
== END 2019-09-12 18:01 | disposition home or self-care (01) ==
LOC: OR 09:25
PROVIDERS: ATTEND Orthopaedic Surgery
DX: S46.011A Strain of muscle(s) and tendon(s) of the rotator cuff of right shoulder, initial encounter (principal); S43.431A Superior glenoid labrum lesion of right shoulder, initial encounter; W00.0XXA Fall on same level due to ice and snow, initial encounter; Y92.9 Unspecified place or not applicable; M75.41 Impingement syndrome of right shoulder; M75.51 Bursitis of right shoulder; M19.011 Primary osteoarthritis, right shoulder; G89.18 Other acute postprocedural pain; I10 Essential (primary) hypertension; Z85.828 Personal history of other malignant neoplasm of skin; Z87.891 Personal history of nicotine dependence; K21.9 Gastro-esophageal reflux disease without esophagitis; K58.9 Irritable bowel syndrome, unspecified
CPT/HCPCS: A9270-GY; C1713; C1776; J0690; J1100; J1170; J1885; J2250; J2405; J2704; J3010; J3490

== ENCOUNTER 2019-09-18 13:14 | Emergency (ER) | payer MEDICARE ==
--- NOTE | 2019-09-18 13:25 | ED ---
HPI Chest Pain - HPI Summary HPI Summary: 59 y/[facility] chest pain and cough starting today. Had rotator cuff tear repair w Dr. Mercado 6 days ago. Had nerve block, was intubated. Told possible discomfort was 2/2 operation. After surgery, patient reported chest pressure and tightness. Has been sitting up/sleeping sitting 2/2 pain. Feels dry cough occasionally. Pain/pressure comes and goes, especially after a cough and will last 30-40 minutes. Pain is midsternal and feels pressure like. Denies hx prior CP or cardiac hx. Non smoker. Hx post nasal drip w chronic cough. No new symptoms, no fevers. - History of Current Complaint Chief Complaint: EDChestPainROMI Hx Obtained From: Patient Onset/Duration: Started Hours Ago, Still Present Timing: Intermittent Current Severity: Moderate Pain Intensity: 5 Pain Scale Used: 0-10 Numeric Chest Pain Location: Mid Sternal Character: Pressure/Squeezing, Tightness Aggravating Factor(s): Nothing Alleviating Factor(s): Nothing Associated Signs and Symptoms: Positive: Negative - fever, Other: - cough - Allergy/Home Medications Allergies/Adverse Reactions: Allergies Allergy/AdvReac Type Severity Reaction Status Date / Time green pepper Allergy Vomiting Verified 09/12/19 09:55 morphine Allergy Nausea And Verified 09/12/19 09:55 Vomiting Home Medications: Home Medications Lisinopril TAB* [Prinivil TAB 10 MG*] 10 mg PO QAM 06/25/13 [History Confirmed 09/18/19] Esomeprazole Magnesium [Nexium 24Hr] 20 mg PO QAM 02/05/18 [History Confirmed ] Cholecalciferol (Vitamin D3) [Vitamin D3] 250 mcg PO QAM 09/06/19 [History Confirmed 09/18/19] Ibuprofen TAB* [Advil TAB*] 600 mg PO ONCE PRN 09/06/19 [History Confirmed 09/17] Polyethylene Glycol 3350 [Miralax] 1 dose PO ONCE PRN 09/06/19 [History Confirmed 09/18/19] Tamsulosin CAP* [Flomax CAP*] 0.4 mg PO QPM 09/06/19 [History Confirmed 09/18/19 ] Vitamin B Complex Vit C No.3 [B Complex with Vitamin C] 1 cap PO QAM 09/06/19 [ History Confirmed 09/18/19] Vitamin E CAP* 800 unit PO QAM 09/06/19 [History Confirmed 09/18/19] Cephalexin CAP* [Keflex CAP*] 500 mg PO Q8H 09/18/19 [History Confirmed 09/18/19 ] Docusate CAP* [Colace Cap*] 100 mg PO DAILY PRN 09/18/19 [History Confirmed ] Saw [place] [Saw [place]] 1,000 mg PO QAM 09/18/19 [History Confirmed ] oxyCODONE/Acetam5/325MG PREPAK [Percocet 5/325 TAB*] 1 - 2 tab PO .Q4-6H PRN [History Confirmed 09/18/19] PMH/Surg Hx/FS Hx/Imm Hx Endocrine/Hematology History: Denies: Hx Bone Marrow Disease, Hx Diabetes, Hx Sickle Cell Disease, Hx Thyroid Disease, Hx Anemia Cardiovascular History: Reports: Hx Hypertension - HX OF-ON MEDICATION FOR- CONTROLLED Denies: Hx Congestive Heart Failure, Hx Coronary Artery Disease, Hx Pacemaker /ICD, Hx Rheumatic Fever Respiratory History: Reports: Other Respiratory Problems/Disorders - GUNNAR SCORE: GUNNAR HIGH RISK; STOP BANG SCORE=5 Denies: Hx Asthma, Hx Chronic Obstructive Pulmonary Disease (COPD), Hx Sleep Apnea GI History: Reports: Hx Irritable Bowel - HX OF-PT REPORTS SHORT TIME FRAME -08/16/19-NO LONGER AN ISSUE Denies: Hx Cirrhosis, Hx Gastroesophageal Reflux Disease, Hx Ulcer, Other GI Disorders History: Reports: Hx Renal Disease - abnormal gfr Denies: Hx Dialysis, Other Problems/Disorders Musculoskeletal History: Reports: Other Musculoskeletal History - CURRENTLY RIGHT SHOULDER ROTATOR CUFF Sensory History: Reports: Hx Contacts or Glasses - READING GLASSES Denies: Hx Cataracts, Hx Glaucoma, Hx Hearing Aid Opthamlomology History: Reports: Hx Contacts or Glasses - READING GLASSES Denies: Hx Cataracts, Hx Glaucoma Neurological History: Denies: Hx Nerve Disease, Other Neuro Impairments/Disorders Psychiatric History: Denies: Hx Panic Disorder - Cancer History Cancer Type, Location and Year: SKIN CANCER Hx Chemotherapy: No - Surgical History Surgery Procedure, Year, and Place: APPENDECTOMY. HEMRROIDECTOMY. LEFT KNEE ARTHOSCOPY. benign lump right neck Hx Anesthesia Reactions: No Infectious Disease History: No Infectious Disease History: Denies: Hx Clostridium Difficile, Hx Hepatitis, Hx Human Immunodeficiency Virus (HIV), Hx of Known/Suspected MRSA, Hx Shingles, Hx Tuberculosis, History Other Infectious Disease, Traveled Outside the [place] in Last 30 Days - Family History Known Family History: Positive: Hypertension, Diabetes - aunt, Blood Disorder - mother - blood clots Negative: Cardiac Disease - Social History Alcohol Use: Occasionally Alcohol Amount: 2-3 BEERS Substance Use Type: Reports: None Hx Tobacco Use: Yes Smoking Status (MU): Former Smoker Type: Cigarettes Amount Used/How Often: 1 1/2 PPD X 10YRS Length of Time of Smoking/Using Tobacco: 10 years Have You Smoked in the Last Year: No Review of Systems Negative: Fever Positive: Chest Pain Positive: Cough All Other Systems Reviewed And Are Negative: Yes Physical Exam - Summary Physical Exam Summary: Constitutional: Well-developed, Well-nourished, Alert. (-) Distressed Skin: Warm, Dry HENT: Normocephalic; Atraumatic Eyes: Conjunctiva normal Neck: Musculoskeletal ROM normal neck. (-) JVD, (-) Stridor, (-) Nuchal rigidity Cardio: Rhythm regular, rate normal, Heart sounds normal; Intact distal pulses; Radial pulses are 2+ and symmetric. (-) Murmur Pulmonary/Chest wall: Effort normal. (-) Respiratory distress, (-) Wheezes, (-) Rales Abd: Soft, (-) tenderness, (-) Distension, (-) Guarding, (-) Rebound Musculoskeletal: (-) Edema; Right arm is in postoperative sling Lymph: (-) Cervical adenopathy Neuro: Alert, Oriented x3 Psych: Mood and affect Normal Triage Information Reviewed: Yes Vital Signs On Initial Exam: Initial Vitals Temp Pulse Resp BP Pulse Ox 98.8 F 66 19 194/87 97 09/18/19 13:15 09/18/19 13:15 09/18/19 13:15 09/18/19 13:15 09/18/19 13:15 Vital Signs Reviewed: Yes Procedures - Sedation Patient Received Moderate/Deep Sedation with Procedure: No Diagnostics - Vital Signs Vital Signs Temp Pulse Resp BP Pulse Ox 09/18/19 13:15 98.8 F 66 19 194/87 97 - Laboratory Result Diagrams: 09/18/19 13:52 09/18/19 13:52 Lab Statement: Any lab studies that have been ordered have been reviewed, and results considered in the medical decision making process. - Radiology CXR Radiology Interpretation Completed By: Radiologist - IMPRESSION: NO ACTIVE CARDIOPULMONARY DISEASE IS NOTED. ED physician has reviewed this imaging report. - CT CHEST CT Interpretation Completed By: Radiologist - IMPRESSION: #. Negative for pulmonary embolism. #. Minimal dependent atelectasis. The lungs and pleural spaces are otherwise clear without evidence for alveolar consolidation, suspicious focal pulmonary lesions, or pleural effusions. Negative for pneumothorax. ED physician has reviewed this imaging report. - EKG 1318 Cardiac Rate: NL - 65 BPM EKG Rhythm: Sinus Rhythm Summary of EKG Findings: An EKG at 1318 reveals normal sinus rhythm 65 BPM, T wave inversion in lead 3. No STEMI. No acute changes. ED physician has reviewed and interpreted this EKG. Chest Pain Course/Dx - Course Course Of Treatment: 59 y/o male w recent R shoulder surgery p/w intermittent CP. Chest Pain DDX: The patient is well appearing, with stable vitals. Given the patient's clinical presentation, highest on differential is atypical CP. Although less likely, differential also includes the following: --Pneumothorax : Equal breath sounds, story inconsistent since gradual onset of symptoms. CXR shows no evidence of pneumothorax. Unlikely. --Cardiac tamponade: The history and physical are not concerning for tamponade. No Pulsus Paradoxus, no tachypnea. Unlikely. --Mediastinitis or esophageal rupture: The history is not consistent, as the patient has had no recent history of significant wretching, instrumentation, or mediastinal surgeries. Unlikely. --Aortic dissection: The patient does not describe the classical tearing chest pain radiating into the back, and the CXR does not show mediastinal widening or other signs of aortic dissection. Unlikely. --PE: Vitals wnl (not hypoxic, tachycardic or tachypneic) . Wells low risk, d dimer elevated, CTA negative. --ACS: The initial EKG shows no ischemic changes. The initial troponin is not elevated x2. Heart score: 3, low risk. - Diagnoses Provider Diagnoses: Chest pain Discharge ED - Sign-Out/Discharge Documenting (check all that apply): Patient Departure - Discharge Plan Condition: Stable Disposition: HOME Patient Education Materials: Chest Pain (ED) Referrals: Bhargavi Krueger MD [Primary Care Provider] - Additional Instructions: You were seen in the emergency department for chest pain. Your EKG (heart tracing), labs, CT and chest x-ray did not show any cause for pain. Important that you follow up with you primary care doctor in the next 1-2 days to help schedule an outpatient stress test. Please return to the emergency department for continued chest pain, trouble breathing, passing out, or if you're concerned. - Billing Disposition and Condition Condition: STABLE Disposition: Home - Attestation Statements Document Initiated by Adilia: Yes Documenting Scribe: Olga Stafford Provider For Whom Adilia is Documenting (Include Credential): Esvin Brown MD Scribe Attestation: Olga Kenny, scribed for Esvin Brown MD on 09/18/19 at 1732. Scribe Documentation Reviewed: Yes Provider Attestation: The documentation as recorded by the Olga gracia accurately reflects the service I personally performed and the decisions made by Esvin wong MD Status of Scribe Document: Viewed
[2019-09-18 14:14] LABS: ABS Eosinophils 0.2 10^3/ul (0-0.6); ABS Lymphocytes 1.8 10^3/ul (1.0-4.8); ABS Monocytes 0.7 10^3/ul (0-0.8); ABS Neutrophils 3.4 10^3/ul (1.5-7.7); Eosinophil % 3.7 %; Hematocrit 38 % (42-52); Lymphocyte % 29.5 %; Mean Corpuscular HGB Conc 34 g/dL (31-36); Mean Corpuscular Hemoglobin 31 pg (27-31); Mean Corpuscular Volume 90 fL (80-94); Mean Platelet Volume 9.2 fL (7.4-10.4); Platelet Count 196 10^3/uL (150-450); Red Blood Count 4.27 10^6 /uL (4.18-5.48); Red Cell Distribution Width 13 % (10-15); White Blood Count 6.1 10^3/uL (3.5-10.8)
[2019-09-18 14:25] LABS: INR 0.92 (0.82-1.09)
[2019-09-18 14:28] LABS: Albumin 3.9 g/dL (3.2-5.2); Albumin/Globulin Ratio 1.4 (1-3); EGFR African American 92.2 (>60); EGFR Non-African American 76.2 (>60); Globulin 2.8 g/dL (2-4); Potassium 4.5 mmol/L (3.5-5.0); Total Bilirubin 0.6 mg/dL (0.2-1.0); Total Protein 6.7 g/dL (6.4-8.9)
--- OUTSIDE RECORDS SUMMARY | 2019-09-18 14:48 | XMS REPORT | Continuity of Care Document ---
:1960 External Reference #:[id number] Author Name Nik Mercado MD (transmitted by agent of provider Sophia Arroyo) Address [address] [place] [address] Care Team Providers Name Role Phone Bhargavi Forbes MD - Family Medicine Care Team Information [employer] Clipper Helper [phone] Problems Active Problems Provider Date Localized, primary osteoarthritis of the Eileen Sanabria M.D. Onset: 11/01/2018 pelvic region and thigh Lumbar sprain Tunde Martinez M.D. Onset: 06/17/2015 Chondromalacia of patella Buck Patterson M.D. Onset: 01/21/2015 Pes anserinus tendinitis and bursitis Buck Patterson M.D. Onset: 01/21/2015 Displacement of lumbar intervertebral disc Tunde Martinez M.D. Onset: 03/2013 without myelopathy Lumbosacral spondylosis without myelopathy Tunde Martinez M.D. Onset: 03/2013 Social History Type Date Description Comments Sex Unknown ETOH Use Currently consumes alcohol Tobacco Use Start: Unknown End: Patient is a former smoker Unknown Smoking Status Reviewed: 08/21/19 Patient is a former smoker Exercise Type/Frequency Exercises regularly Allergies, Adverse Reactions, Alerts Active Allergies Reaction Severity Comments Date Morphine 06/05/2013 Medications Active Medications SIG Qnty Indications Ordering Provider Date Meloxicam 1 by mouth 14tabs M25.551 Eileen Sanabria M.D. 11/01/2018 15mg Tablets every day Lisinopril 1 po qd 90tabs Unknown 10mg Tablets Nexium 1 po qd 90caps Unknown 20mg Capsules DR Tamsulosin HCL Aurelio Ram MD 0.4mg Capsules Sulfamethoxazole/Trime Aurelio Ram MD thoprim DS 800-160mg Tablets Medications Administered in Office Medication SIG Qnty Indications Ordering Provider Date Depomedrol 80MG Buck Patterson M.D. 06/02/2011 Injection Immunizations Description No Information Available Vital Signs Date Vital Result Comment 08/21/2019 11:07am Height 67 inches 5'7" Weight 216.00 lb Heart Rate 70 /min BP Systolic 132 mmHg BP Diastolic 78 mmHg Respiratory Rate 12 /min Pain Level 5 BMI (Body Mass Index) 33.8 kg/m2 12/01/2018 8:18am Height 67 inches 5'7" Heart Rate 80 /min BP Systolic 122 mmHg BP Diastolic 86 mmHg Respiratory Rate 18 /min Body Temperature 99.0 F Pain Level 4 Results Description No Information Available Procedures Description No Information Available Medical Devices Description No Information Available Encounters Description No Information Available Assessments Date Code Description Provider 08/21/2019 M25.511 Pain in right shoulder Nik Mercado MD Plan of Treatment Future Appointment(s):09/06/2019 9:15 am - Nik Mercado MD at [facility] at [place]0608/21/2019 - Nik Mercado, MDM25.511 Pain in right shoulderFollow up:Follow up: after MRI Functional Status Description No Information Available Mental Status Description No Information Available Referrals Description No Information Available
--- OUTSIDE RECORDS SUMMARY | 2019-09-18 14:48 | XMS REPORT | Continuity of Care Document ---
:1960 External Reference #:[id number] Author Name Nik Mercado MD (transmitted by agent of provider Geno Abarca) Address [address] [place] [address] Care Team Providers Name Role Phone Bhargavi Forbes MD - Family Medicine Care Team Information [employer] [phone] Problems Active Problems Provider Date Lumbosacral spondylosis without myelopathy Tunde Martinez M.D. Onset: 03/2013 Displacement of lumbar intervertebral disc Tunde Martinez M.D. Onset: 03/2013 without myelopathy Pes anserinus tendinitis and bursitis Buck Patterson M.D. Onset: 01/21/2015 Chondromalacia of patella Buck Patterson M.D. Onset: 01/21/2015 Lumbar sprain Tunde Martinez M.D. Onset: 06/17/2015 Localized, primary osteoarthritis of the Eileen Sanabria M.D. Onset: 11/01/2018 pelvic region and thigh Social History Type Date Description Comments Sex Unknown ETOH Use Currently consumes alcohol Tobacco Use Start: Unknown End: Patient is a former smoker Unknown Smoking Status Reviewed: 08/30/19 Patient is a former smoker Exercise Type/Frequency [...] Available Vital Signs Date Vital Result Comment 08/30/2019 9:06am Height 67 inches 5'7" Heart Rate 76 /min BP Systolic 158 mmHg BP Diastolic 92 mmHg Respiratory Rate 18 /min Body Temperature 98.1 F Pain Level 6 08/21/2019 11:07am Height 67 inches 5'7" Weight 216.00 lb Heart Rate 70 /min BP Systolic 132 mmHg BP Diastolic 78 mmHg Respiratory Rate 12 /min Pain Level 5 BMI (Body Mass Index) 33.8 kg/m2 Results Description No Information Available Procedures Description No Information Available Medical Devices Description No Information Available Encounters Type Date Location Provider Dx Diagnosis Office Visit 08/21/2019 [facility] Nik Morales S49.91xA Unsp injury of 10:45a at Mikey Mercado MD right shoulder and upper arm, init encntr W00.9xxA Unspecified fall due to ice and snow, initial encounter Assessments Date Code Description Provider 08/30/2019 S46.011D Strain of muscle(s) and tendon(s) of the Nik Mercado MD rotator cuff of right shoulder, subsequent encounter 08/21/2019 S49.91xA Unspecified injury of right shoulder and Nik Mercado MD upper arm, initial encounter 08/21/2019 W00.9xxA Unspecified fall due to ice and snow, Nik Mercado MD initial encounter Plan of Treatment Future Appointment(s):09/12/2019 8:30 am - IZA Rocha at [facility] at [place]2209/24/2019 2:15 pm - Nik Mercado MD at [facility] at [place]09/12/2019 8:30 am - Nik Mercado MD at [facility] at Abxqpv7508/30/2019 - Nik Mercado MDS46.011D Strain of muscle(s) and tendon(s) of the rotator cuff of right shoulder, subsequent encounterFollow up:Follow up: 10-14 days postop Functional Status Description No Information Available Mental Status Description No Information Available Referrals Description No Information Available
--- OUTSIDE RECORDS SUMMARY | 2019-09-18 14:48 | XMS REPORT | Continuity of Care Document ---
:1960 External Reference #:[id number] Author Name Nik Mercado MD (transmitted by agent of provider Geno Abarca) Address [address] [place] [address] Care Team Providers Name Role Phone Bhargavi Forbes MD - Family Medicine Care Team Information Raiser Helper [phone] Problems Active Problems Provider Date Lumbosacral spondylosis [...] Date Location Provider Dx Diagnosis Office Visit 08/30/2019 [facility] Nik Morales S46.011D Strain of 9:00a at Mikey Mercado MD musc/tend the rotator cuff of right shoulder, subs M75.41 Impingement syndrome of right shoulder M75.51 Bursitis of right shoulder M19.011 Primary osteoarthritis, right shoulder Office Visit 08/21/2019 10:45a Lisa Morales S49.91xA Unsp injury of at Mikey Mercado MD right shoulder and upper arm, init encntr W00.9xxA Unspecified fall due to ice and snow, initial encounter Assessments Date Code Description Provider 08/30/2019 S46.011D Strain of muscle(s) and tendon(s) of the Nik Mercado MD rotator cuff of right shoulder, subsequent encounter 08/30/2019 M75.41 Impingement syndrome of right shoulder Nik Mercado MD 08/30/2019 M75.51 Bursitis of right shoulder Nik Mercado MD 08/30/2019 M19.011 Primary osteoarthritis, right shoulder Nik Mercado MD 08/21/2019 S49.91xA Unspecified injury of right shoulder and Nik Mercado MD upper arm, initial encounter 08/21/2019 W00.9xxA Unspecified fall due to ice and snow, Nik Mercado MD initial encounter Plan of Treatment Future Appointment(s):09/12/2019 8:30 am - IZA Rocha at [facility] at Ez[place]p3909/24/2019 2:15 pm - Nik Mercado MD at [facility] at Pnponn3509/12/2019 8:30 am - Nik Mercado MD at [facility] at Lmbfol4908/30/2019 - Nik Mercado, MDS46.011D Strain of muscle(s) and tendon(s) of the rotator cuff of right shoulder, subsequent encounterFollow up:Follow up: 10-14 days firktkG22.41 Impingement syndrome of right vtxjxsjoP38.51 Bursitis of right jeqfpmrbD07.011 Primary osteoarthritis, right shoulder Functional Status Description No Information Available Mental Status Description No Information Available Referrals Description No Information Available
--- OUTSIDE RECORDS SUMMARY | 2019-09-18 14:48 | XMS REPORT | Continuity of Care Document ---
:1960 External Reference #:[id number] Author Name Nik Mercado MD (transmitted by agent of provider Lashaun Barrera) Address [address] [place] [address] Care Team Providers Name Role Phone Bhargavi Forbes MD - Family Medicine Care Team Information [employer] Maker Problems Active Problems Provider Date Localized, primary [...] shoulder Nik Mercado MD Plan of Treatment No Information Available Functional Status Description No Information Available Mental Status Description No Information Available Referrals Description No Information Available
[2019-09-18] MEDS ORDERED: Iohexol 350* (CONTRAST) 500 ML MDV IV ONE (14:50)
[2019-09-18 17:07] VITALS: BP 127/60
== END 2019-09-18 17:06 | disposition home or self-care (01) ==
LOC: ED 13:14
DX: R07.9 Chest pain, unspecified (principal); I10 Essential (primary) hypertension; Z85.828 Personal history of other malignant neoplasm of skin; Z90.89 Acquired absence of other organs; Z87.891 Personal history of nicotine dependence; Z79.899 Other long term (current) drug therapy; Z88.5 Allergy status to narcotic agent
CPT/HCPCS: 36415; 71045; 71275; 80053; 84484; 85025; 85379; 85610; 93005; 99283; Q9967

== ENCOUNTER 2020-07-03 12:47 | Observation (INO) ==
[~2020-07-03 12:47] MED LIST changes: -Acetaminophen TAB* 325 MG ONE; -Acetaminophen TAB* 325 MG PO ONE; +Buffered Lidocaine 1% SYRIN 1 ml INTRADERM ONE; -Buffered Lidocaine 1% SYRIN* 1 ML/SYRINGE INTRADERM ONE; +Famotidine IV 10 MG/ML 2 ml VIAL (20 mg) IV ONE; -Lactated Ringers 1000 ML Bag* 1,000 ML IV SCH; +Lactated Ringers 1000 ml BAG 1,000 ML IV SCH; -ceFAZolin 2 GM PREMIX in ORs 2 GM/50 ML BAG ONE; -celeCOXIB CAP* 200 MG ONE; -celeCOXIB CAP* 200 MG PO ONE
[2020-07-03] MEDS ORDERED: Buffered Lidocaine 1% SYRIN 1 ml INTRADERM ONE (13:02)
[2020-07-03] MEDS ORDERED: Famotidine IV 10 MG/ML 2 ml VIAL (20 mg) ONE (13:02)
[2020-07-03] MEDS ORDERED: ceFAZolin 2 GM PREMIX 2 GM/50 ML BAG ONE (13:02)
[2020-07-03] MEDS ORDERED: ROPIVACAINE 5 MG/ML 30 ML BTL (0.5%) ONE ×2 (14:30→17:45)
[2020-07-03] MEDS ORDERED: Ropivacaine (OR use only) 2 MG/ML 10 ML ONE (14:30)
[2020-07-03] MEDS ORDERED: Midazolam 2 mg/2 ml VIAL 1 mg/ml 2 ml VIAL (2 mg) ONE ×2 (14:31→14:32)
[2020-07-03] MEDS ORDERED: fentaNYL 100 mcg/2 ml 50 MCG/ML VIAL ONE ×4 (14:31→18:14)
[2020-07-03] MEDS ORDERED: Rocuronium 50 mg VIAL 10 mg/ml 5 ml VIAL (50 mg) ONE ×3 (14:33→16:13)
[2020-07-03] MEDS ORDERED: Dexamethasone IV 4 MG/ML VIAL 1 ml VIAL ONE (15:27)
[2020-07-03] MEDS ORDERED: Glycopyrrolate IV 0.2 MG/ML 1 ML VIAL ONE (15:28)
[2020-07-03] MEDS ORDERED: HYDROmorphone 1 MG/1 ML SYRINGE ONE (15:53)
[2020-07-03] MEDS ORDERED: Ondansetron 4 mg VIAL 2 MG/ML 2 ml VIAL ONE (15:53)
[2020-07-03] MEDS ORDERED: Sugammadex 500 MG/5 ML 5 ml VIAL IV PUSH ONE (15:54)
[2020-07-03] MEDS ORDERED: Acetaminophen IV 1 GM/100ML 100 ML ONE (15:54)
[2020-07-03] MEDS ORDERED: Lactulose 30 ml UDC PO PRN (15:57)
[2020-07-03] MEDS ORDERED: Magnesium Hydroxide LIQ 30 ML UDC PO PRN (15:57)
[2020-07-03] MEDS ORDERED: Ondansetron 4 mg VIAL 2 MG/ML 2 ml VIAL IV PRN ×2 (15:57→16:19)
[2020-07-03] MEDS ORDERED: diPHENhydraMINE 25 mg TAB PO PRN (15:57)
[2020-07-03] MEDS ORDERED: diPHENhydraMINE IV 50 MG/ML 1 ml VIAL (BENADRYL) IV PRN (15:57)
[2020-07-03] MEDS ORDERED: Ondansetron ODT 4 mg TAB 4 MG TAB PO PRN (15:57)
[2020-07-03] MEDS ORDERED: DiMENhydriNATE IV 50 mg/ml 1 ml VIAL IV PUSH PRN (16:19)
[2020-07-03] MEDS ORDERED: Naloxone 0.4 mg VIAL 0.4 mg/ml 1 ml VIAL IV PRN (16:19)
[2020-07-03] MEDS ORDERED: Levalbuterol 0.63MG/3ML NEB UNIT OF USE INH PRN (16:19)
[2020-07-03] MEDS: fentaNYL 100 mcg/2 ml 50 MCG/ML VIAL IV PRN ×2 (18:08→18:13)
[2020-07-03] MEDS: Magnesium Hydroxide LIQ 30 ML UDC PO SCH (20:41)
[2020-07-03] MEDS: oxyCODONE/Acetamin 5/325 mg TAB PO PRN (20:41)
[2020-07-03] MEDS: Lactated Ringers 1000 ml BAG 1,000 ML IV SCH (21:03)
[2020-07-03] MEDS: ceFAZolin 1 GM ADVAN 1 GM in NS 0.9% 50 ML 50 ML IVPB SCH (23:23)
[2020-07-04] MEDS: oxyCODONE/Acetamin 5/325 mg TAB PO PRN ×3 (05:09→15:29)
[2020-07-04 05:37] LABS: Hematocrit 36 % (42-52); Hemoglobin 12.4 g/dL (14.0-18.0); Platelet Count 172 10^3/uL (150-450)
[2020-07-04 05:53] LABS: BUN/Creatinine Ratio 16.5 (8-20); Calcium 8.8 mg/dL (8.6-10.3); EGFR African American 83.2 (>60); EGFR Non-African American 68.8 (>60); Magnesium 1.9 mg/dL (1.9-2.7); Potassium 4.4 mmol/L (3.5-5.0)
[2020-07-04] MEDS: Lactated Ringers 1000 ml BAG 1,000 ML IV SCH (07:50)
[2020-07-04] MEDS: ceFAZolin 1 GM ADVAN 1 GM in NS 0.9% 50 ML 50 ML IVPB SCH ×2 (07:50→15:33)
[2020-07-04] MEDS: Magnesium Hydroxide LIQ 30 ML UDC PO SCH (07:53)
[2020-07-04] MEDS ORDERED: Vitamin THERAPEUTIC TAB PO SCH (09:00)
[2020-07-04 11:04] VITALS: BP 123/55
[2020-07-04 12:18] LABS: BUN/Creatinine Ratio 16.2 (8-20); Calcium 9.1 mg/dL (8.6-10.3); EGFR African American 86.9 (>60); EGFR Non-African American 71.8 (>60); Potassium 4.2 mmol/L (3.5-5.0)
== END 2020-07-04 16:40 | disposition home or self-care (01) ==
LOC: SSU 12:47 → OR 12:47
PROVIDERS: ADMIT Orthopaedic Surgery Adult Reconstructive Orthopaedic Surgery; ATTEND Orthopaedic Surgery Adult Reconstructive Orthopaedic Surgery